=== PATIENT | female | born 1945 | race Caucasian/White ===

== ENCOUNTER 2017-05-29 20:26 | Emergency (ER) | payer MEDICARE ==
[~2017-05-29 20:26] MED LIST: BENI20TA26 PO; DICL75 PO; GLUC2.5T2 PO; HYDR-3533 PO; PIOG30 PO; SITA100 PO; VYTO10TA32 PO
[2017-05-29 20:29] VITALS: BP 116/58; PULSE 90; RESP 20; TEMP 100.1; O2SAT 96
[2017-05-29] MEDS ORDERED: PIOG30 PO (20:55)
[2017-05-29] MEDS ORDERED: SITA1TAB2 PO (20:55)
[2017-05-29] MEDS ORDERED: OLME1TAB PO (20:55)
[2017-05-29] MEDS ORDERED: ACIP20TA19 PO (20:55)
[2017-05-29] MEDS ORDERED: GLYB5TAB3 PO (20:55)
[2017-05-29] MEDS ORDERED: VYTO10TA27 PO (20:55)
--- NOTE | 2017-05-29 20:58 | PD ---
HPI Chief Complaint: Fever Time Seen by Provider: 20:39 Travel History International Travel<30 days: No Contact w/Intl Traveler<30days: No Traveled to known affect area: No History of Present Illness HPI pt on vacation from [place] for [place] today felt cold all over then measured tempurature and it was 100.8 took tylenol and felt better and then around 6 pm feeling came back , denies N/V/D and no cough no sore throat , no other complaints , 10 days ago in [place] had laproscopic Cholecystectomy , she went to an urgent care and they sent her to [place] [facility] . Now temp 101 no tylenol since this AM. no abdo pain no focal pain no bowel cahnges no urinary changes PFSH Past Medical History High Cholesterol: Yes Diabetes: Yes Patient Takes Glucophage: No Diminished Hearing: No GERD: Yes Hypertension: Yes Immunizations Current: Yes Tetanus Vaccination: < 5 Years Influenza Vaccination: Yes Menopausal: Yes Past Surgical History Section: Yes Cholecystectomy: Yes Social History Alcohol Use: No Tobacco Use: No Substance Use: No Allergies-Medications (Allergen,Severity, Reaction): Coded Allergies: No Known Allergies (Verified Adverse Reaction, Unknown, 05/29/17) Reported Meds & Prescriptions Reported Meds & Active Scripts Active Cipro (Ciprofloxacin HCl) 500 Mg Tab 500 Mg PO BID Zofran (Ondansetron HCl) 4 Mg Tab 4 Mg PO Q6HR PRN Reported Vytorin (Ezetimibe-Simvastatin) 10-10 Mg Tab 1 Tab PO HS Januvia (Sitagliptin Phosphate) 100 Mg Tab 100 Mg PO DAILY Glyburide 5 Mg Tab 5 Mg PO BID Take with meals at the same time each day Benicar (Olmesartan) 20 Mg Tab 20 Mg PO DAILY Aciphex (Rabeprazole Sodium) 20 Mg Tab 20 Mg PO DAILY Actos (Pioglitazone HCl) 30 Mg Tab 30 Mg PO DAILY Review of Systems Except as stated in HPI: all other systems reviewed are Neg General / Constitutional: Positive: Fever, Chills Respiratory: No: Cough, Shortness of Breath Gastrointestinal: No: Nausea, Vomiting, Abdominal Pain Genitourinary: No: Urgency, Frequency Musculoskeletal: No: Myalgias Neurologic: No: Weakness Physical Exam Narrative GENERAL: non toxic appearing SKIN: Warm and dry. HEAD: Atraumatic. Normocephalic. EYES: Pupils equal and round. No scleral icterus. No injection or drainage. ENT: No nasal bleeding or discharge. Mucous membranes pink and moist. NECK: Trachea midline. No JVD. CARDIOVASCULAR: Regular rate and rhythm. RESPIRATORY: No accessory muscle use. Clear to auscultation. Breath sounds equal bilaterally. GASTROINTESTINAL: Abdomen .. has 4 port holes no signs of infection around ports on skin and percussion does not elicit any rebound tenderness or pain. no skin signs of infection soft, non-tender, nondistended. Hepatic and splenic margins not palpable. POC U/S linear probe no abscess on Skin Sub Q and FAST negative for Free fluid in Morrisons pouch MUSCULOSKELETAL: Extremities without clubbing, cyanosis, or edema. No obvious deformities. NEUROLOGICAL: Awake and alert. No obvious cranial nerve deficits. Motor grossly within normal limits. Five out of 5 muscle strength in the arms and legs. Normal speech. PSYCHIATRIC: Appropriate mood and affect; insight and judgment normal. Data Data Last Documented VS Vital Signs Date Time Temp Pulse Resp B/P (MAP) Pulse Ox O2 Delivery O2 Flow Rate FiO2 05/29/17 22:40 05/29/17 22:39 99.7 82 18 98 Room Air Orders Orders Urinalysis - C+S If Indicated (05/29/17 20:51) Group A Rapid Strep Screen (05/29/17 20:58) Influenzae A/B Antigen (05/29/17 20:58) Urine Culture (05/29/17 20:55) Complete Blood Count With Diff (05/29/17 21:11) Comprehensive Metabolic Panel (05/29/17 21:11) Lipase (05/29/17 21:11) Strep Culture (Group A) (05/29/17 21:00) Ciprofloxacin (Cipro) (05/29/17 22:00) Labs Laboratory Tests Test 05/29/17 20:55 05/29/17 21:14 Urine Color YELLOW Urine Turbidity CLEAR Urine pH 5.5 Urine Specific [place] 1.025 Urine Protein 100 mg/dL Urine Glucose (UA) NEG mg/dL Urine Ketones TRACE mg/dL Urine Occult Blood TRACE Urine Nitrite NEG Urine Bilirubin NEG Urine Leukocyte Esterase SMALL Urine RBC 0-2 /hpf Urine WBC 50-99 /hpf Urine Squamous Epithelial Cells 0-5 /hpf Urine Bacteria OCC /hpf Microscopic Urinalysis Comment CULTURE INDICATED White Blood Count 9.9 TH/MM3 Red Blood Count 3.52 MIL/MM3 Hemoglobin 9.7 GM/DL Hematocrit 29.1 % Mean Corpuscular Volume 82.7 FL Mean Corpuscular Hemoglobin 27.5 PG Mean Corpuscular Hemoglobin Concent 33.2 % Red Cell Distribution Width 13.7 % Platelet Count 264 TH/MM3 Mean Platelet Volume 9.0 FL Neutrophils (%) (Auto) 81.8 % Lymphocytes (%) (Auto) 10.6 % Monocytes (%) (Auto) 6.8 % Eosinophils (%) (Auto) 0.4 % Basophils (%) (Auto) 0.4 % Neutrophils # (Auto) 8.2 TH/MM3 Lymphocytes # (Auto) 1.0 TH/MM3 Monocytes # (Auto) 0.7 TH/MM3 Eosinophils # (Auto) 0.0 TH/MM3 Basophils # (Auto) 0.0 TH/MM3 CBC Comment AUTO DIFF Differential Comment AUTO DIFF CONFIRMED Blood Urea Nitrogen 33 MG/DL Creatinine 1.60 MG/DL Random Glucose 151 MG/DL Total Protein 7.5 GM/DL Albumin 2.8 GM/DL Calcium Level 8.7 MG/DL Alkaline Phosphatase 69 U/L Aspartate Amino Transf (AST/SGOT) 14 U/L Alanine Aminotransferase (ALT/SGPT) 12 U/L Total Bilirubin 0.4 MG/DL Sodium Level 134 MEQ/L Potassium Level 4.1 MEQ/L Chloride Level 98 MEQ/L Carbon Dioxide Level 27.2 MEQ/L Anion Gap 9 MEQ/L Estimat Glomerular Filtration Rate 32 ML/MIN Lipase 112 U/L [facility] Medical Decision Making Medical Screen Exam Complete: Yes Emergency Medical Condition: Yes Differential Diagnosis viral illness vs UTI vs strep pharyngitis vs Influenza other Narrative Course Labs WBC 9 on serum no abdo pain on percussion and deep palpation . Negative murphys sign on my POC bedside Sonogram . Linear probe no abscess around surgical ports or above liver port, I feel that further eval of post op complication is not indicated at this time , pt UTI 50-99 WBC on UA will treat as UTI cipro 500mg PO bid time 7 days and close follow up in outpt flu swab negative Diagnosis Primary Impression: UTI (urinary tract infection) Qualified Codes: N30.00 - Acute cystitis without hematuria Patient Instructions: General Instructions, Urinary Tract Infection in Women ( ED) Scripts Ciprofloxacin (Cipro) 500 Mg Tab 500 MG PO BID for Infection, #14 TAB 0 Refills Prov: Dago Eng MD 05/29/17 Ondansetron (Zofran) 4 Mg Tab 4 MG PO Q6HR Y for NAUSEA OR VOMITING, #20 TAB 0 Refills Prov: Dago Eng MD 05/29/17 Disposition: 01 DISCHARGE HOME Condition: Good Dago Eng MD May 29, 2017 20:58
[2017-05-29 21:02] LABS: BILIRUBIN, URINE NEG (NEG); BLOOD, URINE TRACE (NEG); GLUCOSE,URINE NEG (NEG); KETONE, URINE TRACE mg/dL (NEG); NITRITE,URINE NEG (NEG); PH, URINE 5.5 (5.0-8.5); URINE LEUKOCYTE ESTERASE SMALL (NEG)
[2017-05-29 21:08] LABS: URINE COLOR YELLOW (YELLW/STRAW)
[2017-05-29 21:09] LABS: BACTERIA, URINE OCC /hpf; RBC, URINE 0-2 /hpf (0-3); SQUAMOUS EPITHELIAL CELL URINE 0-5 /hpf (0-5)
[2017-05-29 21:26] LABS: AUTOMATED NEUTROPHIL # 8.2 TH/MM3 (1.8-7.7); BASOPHIL % 0.4 % (0.0-2.0); EOSINOPHIL % 0.4 % (0.0-4.0); HEMATOCRIT 29.1 % (35.0-46.0); HEMOGLOBIN 9.7 GM/DL (11.6-15.3); LYMPH % 10.6 % (9.0-44.0); MEAN CELL VOLUME 82.7 FL (80.0-100.0); MEAN CORPUSCULAR HEMOGLOBIN 27.5 PG (27.0-34.0); MEAN CORPUSCULAR HGB CONC 33.2 % (32.0-36.0); MONO % 6.8 % (0.0-8.0); MONOCYTE # 0.7 TH/MM3 (0-0.9); NEUT % 81.8 % (16.0-70.0); PLATELET COUNT 264 TH/MM3 (150-450); RED BLOOD COUNT 3.52 MIL/MM3 (4.00-5.30); RED CELL DISTRIBUTION WIDTH 13.7 % (11.6-17.2); WHITE BLOOD COUNT 9.9 TH/MM3 (4.0-11.0)
[2017-05-29 21:37] LABS: CHLORIDE 98 MEQ/L (98-107); SODIUM (NA) 134 MEQ/L (136-145)
[2017-05-29 21:40] LABS: ALBUMIN 2.8 GM/DL (3.4-5.0); BICARBONATE 27.2 MEQ/L (21.0-32.0); BLOOD UREA NITROGEN 33 MG/DL (7-18); CALCIUM 8.7 MG/DL (8.5-10.1); GLUCOSE,RANDOM 151 MG/DL (74-106); LIPASE 112 U/L (73-393)
[2017-05-29 21:43] LABS: ALT (GPT) 12 U/L (10-53); AST (GOT) 14 U/L (15-37); GLOMERULAR FILTRATION RATE 32 ML/MIN (>89)
[2017-05-29 21:45] LABS: TOTAL BILIRUBIN ADULT 0.4 MG/DL (0.2-1.0); TOTAL PROTEIN 7.5 GM/DL (6.4-8.2)
[2017-05-29 21:46] LABS: ALKALINE PHOSPHATASE 69 U/L (45-117)
[2017-05-29] MEDS ORDERED: CIPROFLOXACIN 500 MG TAB PO ONE (22:00)
[2017-05-29] MEDS ORDERED: CIPR-9 PO (22:29)
[2017-05-29] MEDS ORDERED: ZOFR4TAB PO (22:29)
[2017-05-29 22:39] VITALS: BP 100/62; PULSE 82; RESP 18; TEMP 99.7; O2SAT 98
== END 2017-05-29 22:41 | disposition home or self-care (01) ==
LOC: PHED 20:26
DX: N30.00 Acute cystitis without hematuria (principal); R82.99 Other abnormal findings in urine; E78.00 Pure hypercholesterolemia, unspecified; E11.9 Type 2 diabetes mellitus without complications; I10 Essential (primary) hypertension; K21.9 Gastro-esophageal reflux disease without esophagitis; Z79.84 Long term (current) use of oral hypoglycemic drugs
CPT/HCPCS: 80053; 81001; 83690; 85025; 87081; 87086; 87804; 87880; 99284

== ENCOUNTER 2017-05-31 17:28 | Inpatient (IN) | payer MEDICARE ==
[~2017-05-31] VITALS: Ht 190.5 cm; Wt 81.3 kg
[~2017-05-31 17:28] MED LIST changes: +ACIP20TA19 PO; -BENI20TA26 PO; +CIPR-9 PO; -DICL75 PO; -GLUC2.5T2 PO; +GLYB5TAB3 PO; -HYDR-3533 PO; +OLME1TAB PO; -SITA100 PO; +SITA1TAB2 PO; +VYTO10TA27 PO; -VYTO10TA32 PO; +ZOFR4TAB PO
[2017-05-31 17:32] VITALS: BP 110/71; PULSE 79; RESP 16; TEMP 100.9; O2SAT 97
[2017-05-31 17:46] LABS: BILIRUBIN, URINE NEG (NEG); GLUCOSE,URINE NEG (NEG); KETONE, URINE NEG (NEG); NITRITE,URINE NEG (NEG); URINE LEUKOCYTE ESTERASE LARGE (NEG)
[2017-05-31 17:51] LABS: BLOOD, URINE TRACE (NEG)
[2017-05-31 17:52] LABS: URINE COLOR YELLOW (YELLW/STRAW)
[2017-05-31] MEDS ORDERED: GLYB5TAB3 PO (17:52)
[2017-05-31 17:53] LABS: BACTERIA, URINE FEW /hpf
--- NOTE | 2017-05-31 18:11 | PD ---
HPI Chief Complaint: Complaint Time Seen by Provider: 18:01 Travel History International Travel<30 days: No Contact w/Intl Traveler<30days: No Traveled to known affect area: No History of Present Illness HPI Patient evaluated 2 days ago with diagnosis of UTI with fever. Compliant with Cipro. Reports persistent fever. On vacation from [place] for [place]. Denies N/V/D, no cough, no sore throat , no other complaints , 12 days ago in [place] had laparoscopic Cholecystectomy. No abdominal pain, denies any urinary or bowel symptoms. PFSH Past Medical History High Cholesterol: Yes Diabetes: Yes Patient Takes Glucophage: Yes (05-31-17 0800) Diminished Hearing: No GERD: Yes Hypertension: Yes Immunizations Current: Yes Tetanus Vaccination: Unknown Influenza Vaccination: Yes ?: Not Menopausal: Yes Past Surgical History Section: Yes Cholecystectomy: Yes Other Surgery: Yes (polyps) Social History Alcohol Use: No Tobacco Use: No Substance Use: No Allergies-Medications (Allergen,Severity, Reaction): Coded Allergies: No Known Allergies (Verified Adverse Reaction, Unknown, 05/31/17) Reported Meds & Prescriptions Reported Meds & Active Scripts Active Cipro (Ciprofloxacin HCl) 500 Mg Tab 500 Mg PO BID Reported Glyburide 5 Mg Tab 5 Mg PO DAILY Take with meals at the same time each day Vytorin (Ezetimibe-Simvastatin) 10-10 Mg Tab 1 Tab PO HS Januvia (Sitagliptin Phosphate) 100 Mg Tab 50 Mg PO DAILY Benicar (Olmesartan) 20 Mg Tab 20 Mg PO DAILY Aciphex (Rabeprazole Sodium) 20 Mg Tab 20 Mg PO DAILY Actos (Pioglitazone HCl) 30 Mg Tab 15 Mg PO DAILY Review of Systems General / Constitutional: Positive: Fever Eyes: No: Visual changes HENT: No: Headaches Cardiovascular: No: Chest Pain or Discomfort Respiratory: No: Shortness of Breath Gastrointestinal: No: Abdominal Pain Genitourinary: No: Dysuria Musculoskeletal: No: Pain Skin: No Rash Neurologic: No: Weakness Psychiatric: No: Depression Endocrine: No: Polydipsia Hematologic/Lymphatic: No: Easy Bruising Physical Exam Narrative GENERAL: Well-nourished, well-developed patient. SKIN: Focused skin assessment warm/dry. HEAD: Normocephalic. EYES: No scleral icterus. No injection or drainage. NECK: Supple, trachea midline. No JVD or lymphadenopathy. CARDIOVASCULAR: Regular rate and rhythm without murmurs, gallops, or rubs. RESPIRATORY: Breath sounds equal bilaterally. No accessory muscle use. GASTROINTESTINAL: Abdomen soft, non-tender, nondistended. Surgical incisions without cellulitic change or drainage MUSCULOSKELETAL: No cyanosis, or edema. BACK: Nontender without obvious deformity. No CVA tenderness. Data Data Last Documented VS Vital Signs Date Time Temp Pulse Resp B/P (MAP) Pulse Ox O2 Delivery O2 Flow Rate FiO2 05/31/17 17:32 100.9 79 16 110/71 (84) 97 Orders Orders Urinalysis - C+S If Indicated (05/31/17 17:31) Urine Culture (05/31/17 17:40) Complete Blood Count With Diff (05/31/17 18:06) Comprehensive Metabolic Panel (05/31/17 18:06) Iv Access Insert/Monitor (05/31/17 18:06) Oximetry (05/31/17 18:06) Acetaminophen (Tylenol) (05/31/17 18:15) Ceftriaxone Inj (Rocephin Inj) (05/31/17 18:15) Sodium Chloride 0.9% Flush (Ns Flush) (05/31/17 18:15) Blood Culture (05/31/17 18:06) Ct Abd/Pel W Iv Contrast(Rout) (05/31/17 ) Labs Laboratory Tests Test 05/31/17 17:40 Urine Collection Type CLEAN CATCH Urine Color YELLOW Urine Turbidity SLIGHT Urine pH 5.0 Urine Specific [place] 1.008 Urine Protein 30 mg/dL Urine Glucose (UA) NEG mg/dL Urine Ketones NEG mg/dL Urine Occult Blood TRACE Urine Nitrite NEG Urine Bilirubin NEG Urine Leukocyte Esterase LARGE Urine RBC 4-9 /hpf Urine WBC 25-49 /hpf Urine Squamous Epithelial Cells 6-8 /hpf Urine Transitional Epithelial Cells 6-8 /hpf Urine Bacteria FEW /hpf Microscopic Urinalysis Comment CULTURE INDICATED Urine Collection Time 17:40 [facility] Medical Decision Making Medical Screen Exam Complete: Yes Emergency Medical Condition: Yes Differential Diagnosis UTI resistant to Cipro, cholecystectomy complication, fever unknown origin, viral illness Narrative Course Assessment and plan discussed with patient and at bedside. Gerald Dolan MD May 31, 2017 18:11
[2017-05-31] MEDS ORDERED: SODIUM CHLORIDE 0.9% FLUSH 10 ML FLUSH IVF PRN (18:15)
[2017-05-31] MEDS ORDERED: ACETAMINOPHEN 325 MG TAB PO ONE (18:15)
[2017-05-31] MEDS ORDERED: cefTRIAXone INJ 1,000 MG in SODIUM CHLORIDE 0.9% INJ 100 ML IV ONE (18:15)
[2017-05-31] MEDS ORDERED: DIATRIZOATE MEGLUM/DIATRIZOATE SOD 9 ML CUP ONE (18:26)
[2017-05-31 18:31] LABS: AUTOMATED NEUTROPHIL # 7.3 TH/MM3 (1.8-7.7); BASOPHIL # 0.5 TH/MM3 (0-0.2); BASOPHIL % 4.7 % (0.0-2.0); EOSINOPHIL % 0.5 % (0.0-4.0); HEMATOCRIT 28.2 % (35.0-46.0); HEMOGLOBIN 9.3 GM/DL (11.6-15.3); LYMPH % 12.6 % (9.0-44.0); LYMPHOCYTE # 1.2 TH/MM3 (1.0-4.8); MEAN CELL VOLUME 83.1 FL (80.0-100.0); MEAN CORPUSCULAR HEMOGLOBIN 27.4 PG (27.0-34.0); MEAN PLATELET VOLUME 8.8 FL (7.0-11.0); MONO % 8.7 % (0.0-8.0); MONOCYTE # 0.9 TH/MM3 (0-0.9); NEUT % 73.5 % (16.0-70.0); PLATELET COUNT 323 TH/MM3 (150-450); RED BLOOD COUNT 3.39 MIL/MM3 (4.00-5.30); RED CELL DISTRIBUTION WIDTH 13.9 % (11.6-17.2); WHITE BLOOD COUNT 9.9 TH/MM3 (4.0-11.0)
[2017-05-31 18:41] LABS: CHLORIDE 94 MEQ/L (98-107); SODIUM (NA) 132 MEQ/L (136-145)
[2017-05-31 18:44] LABS: CALCIUM 8.6 MG/DL (8.5-10.1)
[2017-05-31 18:45] LABS: ALBUMIN 2.7 GM/DL (3.4-5.0); BICARBONATE 25.9 MEQ/L (21.0-32.0); BLOOD UREA NITROGEN 36 MG/DL (7-18); GLUCOSE,RANDOM 106 MG/DL (74-106)
[2017-05-31 18:48] LABS: ALT (GPT) 16 U/L (10-53)
[2017-05-31 18:54] VITALS: O2SAT 97
[2017-05-31 18:56] LABS: ALKALINE PHOSPHATASE 123 U/L (45-117); AST (GOT) 38 U/L (15-37); GLOMERULAR FILTRATION RATE 21 ML/MIN (>89); TOTAL BILIRUBIN ADULT 0.4 MG/DL (0.2-1.0); TOTAL PROTEIN 7.9 GM/DL (6.4-8.2)
[2017-05-31] MEDS ORDERED: SODIUM CHLOR 0.9% 1000 ML INJ 1,000 ML IV ONE ×2 (19:30→21:15)
[2017-05-31 20:02] VITALS: BP 91/54; PULSE 68; RESP 18; O2SAT 97
--- NOTE | 2017-05-31 20:56 | RADRPT ---
EXAM DATE/TIME: 05/31/2017 20:16 [facility] COMPARISON: No previous studies available for comparison. INDICATIONS : Fever. Possible UTI. Recent cholecysectomy 05/19/2017, suspected abscess. ORAL CONTRAST: Partial prescribed oral contrast ingested. RADIATION DOSE: 23.14 CTDIvol (mGy) MEDICAL HISTORY : Hypercholesterolemia. Hypertension. Diabetes mellitus type 2. SURGICAL HISTORY : Cholecystectomy. ENCOUNTER: Initial ACUITY: 2 days PAIN SCALE: 3/10 LOCATION: Right upper quadrant TECHNIQUE: Volumetric scanning of the abdomen and pelvis was performed. Using automated exposure control and ad justment of the mA and/or kV according to patient size, radiation dose was kept as low as reasonably achievable to obtain optimal diagnostic quality images. DICOM format image data is available electro nically for review and comparison. FINDINGS: LOWER LUNGS: Mild atelectasis at the lung bases. LIVER: Cholecystectomy clips are seen in the gallbladder fossa. 7.6 x 4.9 cm gas and fluid collection in the gallbladder fossa suspicious for abscess. Liver is unremarkable. SPLEEN: Normal size without lesion. PANCREAS: Within normal limits. KIDNEYS: Normal in size and shape. There is no mass, stone, or hydronephrosis. ADRENAL GLANDS: Within normal limits. VASCULAR: There is no aortic aneurysm. BOWEL/MESENTERY: No evidence of bowel dilatation. No free air or free fluid. Appendix within normal limits. ABDOMINAL WALL: Within normal limits. RETROPERITONEUM: There is no lymphadenopathy. BLADDER: No wall thickening or mass. REPRODUCTIVE: Within normal limits. INGUINAL: There is no lymphadenopathy or hernia. MUSCULOSKELETAL: Degenerative findings lumbar spine. CONCLUSION: Status post cholecystectomy. 8 cm mixed gas and fluid collection in the gallbladder fossa suspicious for abscess adjacent inflammatory changes also noted. Marco A Fountain MD on May 31, 2017 at 20:44 Board Certified Radiologist. This report was verified electronically.
[2017-05-31] MEDS ORDERED: PIPERACIL-TAZO 2.25 GM PREMIX 50 ML IV ONE (21:15)
[2017-05-31] MEDS: SODIUM CHLOR 0.9% 1000 ML INJ 1,000 ML IV SCH (21:42)
[2017-05-31] MEDS ORDERED: SENNOSIDES 8.6 MG TAB PO PRN (21:45)
[2017-05-31] MEDS ORDERED: ACETAMINOPHEN 325 MG TAB PO PRN (21:45)
[2017-05-31] MEDS ORDERED: ONDANSETRON HCL 4 MG/2 ML VIAL IVP PRN (21:45)
[2017-05-31] MEDS ORDERED: LACTULOSE SYRUP 20 GM/30 ML CUP PO PRN (21:45)
[2017-05-31] MEDS ORDERED: BISACODYL 10 MG SUPP RECTAL PRN (21:45)
[2017-05-31] MEDS ORDERED: NALOXONE HCL 0.4 MG/ML AMP IV PUSH PRN (21:45)
[2017-05-31] MEDS ORDERED: SODIUM CHLORIDE 0.9% FLUSH 10 ML FLUSH IV FLUSH PRN (21:45)
[2017-05-31] MEDS ORDERED: MAGNESIUM HYDROXIDE SUSP 30 ML CUP PO PRN (21:45)
[2017-05-31] MEDS ORDERED: LIDOCAINE HCL 1% 20 ML VIAL SQ ONE (21:47)
[2017-05-31 21:53] LABS: INTERNATIONAL NORMALIZED RATIO 1.1 RATIO; PROTHROMBIN TIME - PATIENT 11.6 SEC (9.8-11.6)
[2017-05-31 22:05] VITALS: BP 113/52; PULSE 68; RESP 18; O2SAT 97
[2017-05-31 22:35] VITALS: BP 125/62; PULSE 75; RESP 16; TEMP 98.3; O2SAT 100
[2017-06-01] VITALS (9 sets, daily range): BP systolic 94–141; BP diastolic 51–87; PULSE 72–78; RESP 16–20; TEMP 97.9–99.2; O2SAT 95–100
--- NOTE | 2017-06-01 03:17 | PD ---
Data Data Last Documented VS Vital Signs Date Time Temp Pulse Resp B/P (MAP) Pulse Ox O2 Delivery O2 Flow Rate FiO2 05/31/17 20:02 68 18 91/54 (66) 97 Room Air 05/31/17 17:32 100.9 Orders Orders Urinalysis - C+S If Indicated (05/31/17 17:31) Urine Culture (05/31/17 17:40) Complete Blood Count With Diff (05/31/17 18:06) Comprehensive Metabolic Panel (05/31/17 18:06) Iv Access Insert/Monitor (05/31/17 18:06) Oximetry (05/31/17 18:06) Acetaminophen (Tylenol) (05/31/17 18:15) Ceftriaxone Inj (Rocephin Inj) (05/31/17 18:15) Sodium Chloride 0.9% Flush (Ns Flush) (05/31/17 18:15) Blood Culture (05/31/17 18:06) Oral Contrast - Adult (05/31/17 18:15) Diatrizoate Liq ( Gastroview Liq) (05/31/17 18:26) Ct Abd/Pel W/O Iv Contrast (05/31/17 ) Sodium Chlor 0.9% 1000 Ml Inj (Ns 1000 M (05/31/17 19:30) Sodium Chlor 0.9% 1000 Ml Inj (Ns 1000 M (05/31/17 21:15) Piperacil-Tazo 2.25 Gm Premix (Zosyn 2.2 (05/31/17 21:15) Prothrombin Time / Inr (Pt) (05/31/17 21:24) Act Partial Throm Time (Ptt) (05/31/17 21:24) Admit Order (Ed Use Only) (05/31/17 21:44) Place In Observation (05/31/17 ) Vital Signs (Adult) Q4H (05/31/17 21:42) Activity Oob With Assistance (05/31/17 21:42) Bedside Glucose ZENON.CSUGAR (05/31/17 21:42) Diet Npo (06/01/17 Breakfast) Sodium Chlor 0.9% 1000 Ml Inj (Ns 1000 M (05/31/17 21:42) Sodium Chloride 0.9% Flush (Ns Flush) (05/31/17 21:45) Sodium Chloride 0.9% Flush (Ns Flush) (06/01/17 09:00) Acetaminophen (Tylenol) (05/31/17 21:45) Ondansetron Inj (Zofran Inj) (05/31/17 21:45) Comprehensive Metabolic Panel (06/01/17 06:00) Complete Blood Count With Diff (06/01/17 06:00) Scd Bilateral/Knee High ZENON.BID (05/31/17 21:42) Naloxone Inj (Narcan Inj) (05/31/17 21:45) Docusate Sodium-Senna (Madeline-Colace) (06/01/17 09:00) Magnesium Hydroxide Liq (Milk Of Magnesi (05/31/17 21:45) Sennosides (Senokot) (05/31/17 21:45) Bisacodyl Supp (Dulcolax Supp) (05/31/17 21:45) Lactulose Liq (Lactulose Liq) (05/31/17 21:45) Piperacil-Tazo 3.375 Gm Premix (Zosyn 3. (06/01/17 04:00) Invasive Rad Dept Consult (05/31/17 ) Labs Laboratory Tests Test 05/31/17 17:40 05/31/17 18:04 05/31/17 21:35 Urine Collection Type CLEAN CATCH Urine Color YELLOW Urine Turbidity SLIGHT Urine pH 5.0 Urine Specific [place] 1.008 Urine Protein 30 mg/dL Urine Glucose (UA) NEG mg/dL Urine Ketones NEG mg/dL Urine Occult Blood TRACE Urine Nitrite NEG Urine Bilirubin NEG Urine Leukocyte Esterase LARGE Urine RBC 4-9 /hpf Urine WBC 25-49 /hpf Urine Squamous Epithelial Cells 6-8 /hpf Urine Transitional Epithelial Cells 6-8 /hpf Urine Bacteria FEW /hpf Microscopic Urinalysis Comment CULTURE INDICATED Urine Collection Time 17:40 White Blood Count 9.9 TH/MM3 Red Blood Count 3.39 MIL/MM3 Hemoglobin 9.3 GM/DL Hematocrit 28.2 % Mean Corpuscular Volume 83.1 FL Mean Corpuscular Hemoglobin 27.4 PG Mean Corpuscular Hemoglobin Concent 33.0 % Red Cell Distribution Width 13.9 % Platelet Count 323 TH/MM3 Mean Platelet Volume 8.8 FL Neutrophils (%) (Auto) 73.5 % Lymphocytes (%) (Auto) 12.6 % Monocytes (%) (Auto) 8.7 % Eosinophils (%) (Auto) 0.5 % Basophils (%) (Auto) 4.7 % Neutrophils # (Auto) 7.3 TH/MM3 Lymphocytes # (Auto) 1.2 TH/MM3 Monocytes # (Auto) 0.9 TH/MM3 Eosinophils # (Auto) 0.0 TH/MM3 Basophils # (Auto) 0.5 TH/MM3 CBC Comment DIFF FINAL Differential Comment Blood Urea Nitrogen 36 MG/DL Creatinine 2.30 MG/DL Random Glucose 106 MG/DL Total Protein 7.9 GM/DL Albumin 2.7 GM/DL Calcium Level 8.6 MG/DL Alkaline Phosphatase 123 U/L Aspartate Amino Transf (AST/SGOT) 38 U/L Alanine Aminotransferase (ALT/SGPT) 16 U/L Total Bilirubin 0.4 MG/DL Sodium Level 132 MEQ/L Potassium Level 4.1 MEQ/L Chloride Level 94 MEQ/L Carbon Dioxide Level 25.9 MEQ/L Anion Gap 12 MEQ/L Estimat Glomerular Filtration Rate 21 ML/MIN Prothrombin Time 11.6 SEC Prothromb Time International Ratio 1.1 RATIO Activated Partial Thromboplast Time 31.1 SEC [facility] Supervised Visit with DALLIN: No Interpretation(s) Temperature is 100.9, no tachycardia No leukocytosis Hyponatremia Renal insufficiency worse than prior Urinalysis demonstrates some squamous epithelial cells a possible UTI. Urine culture from 2 days ago is negative. Last 24 hours Impressions Abdomen/Pelvis CT 05/31/17 0000 Signed Impressions: Service Date/Time: Wednesday, May 31, 2017 20:16 - CONCLUSION: Status post cholecystectomy. 8 cm mixed gas and fluid collection in the gallbladder fossa suspicious for abscess adjacent inflammatory changes also noted. Marco A Fountain MD Differential Diagnosis Abscess, urinary tract infection, pyelonephritis, sepsis Narrative Course This is a 72-year-old female who had a cholecystectomy 2 weeks ago in [place] who presents to the emergency department with intractable fevers and chills. She was seen in the emergency department 2 days ago and diagnosed with a urinary tract infection. She was started on Cipro oxygen. Her urine culture was negative from that time. She continues to feel weak and have fevers and chills. Labs demonstrate worsening dehydration and renal insufficiency. She does have a possible urinary tract infection however her urinalysis is contaminated. CT abdomen and pelvis demonstrates an 8 cm fluid collection in the gallbladder fossa concerning for abscess. I suspect this is the etiology of her symptoms. I spoke to radiology and we discussed likely drain placement tomorrow morning. She was given a dose of Zosyn in the emergency department. Diagnosis Primary Impression: Abscess after procedure Admitting Information Admitting Physician Requests: Admit Emma Hendrix MD Jun 01, 2017 03:17
[2017-06-01] MEDS ORDERED: PIPERACIL-TAZO 3.375 GM PREMIX 50 ML IV SCH (04:00)
[2017-06-01 07:32] LABS: CHLORIDE 101 MEQ/L (98-107); SODIUM (NA) 137 MEQ/L (136-145)
[2017-06-01 07:33] LABS: AUTOMATED NEUTROPHIL # 6.7 TH/MM3 (1.8-7.7); BASOPHIL # 0.1 TH/MM3 (0-0.2); BASOPHIL % 1.6 % (0.0-2.0); EOSINOPHIL # 0.1 TH/MM3 (0-0.4); EOSINOPHIL % 0.7 % (0.0-4.0); HEMATOCRIT 26.9 % (35.0-46.0); HEMOGLOBIN 8.9 GM/DL (11.6-15.3); LYMPH % 8.4 % (9.0-44.0); LYMPHOCYTE # 0.7 TH/MM3 (1.0-4.8); MEAN CELL VOLUME 84.6 FL (80.0-100.0); MEAN CORPUSCULAR HEMOGLOBIN 27.9 PG (27.0-34.0); MEAN PLATELET VOLUME 8.5 FL (7.0-11.0); MONO % 8.5 % (0.0-8.0); MONOCYTE # 0.7 TH/MM3 (0-0.9); NEUT % 80.8 % (16.0-70.0); PLATELET COUNT 296 TH/MM3 (150-450); RED BLOOD COUNT 3.18 MIL/MM3 (4.00-5.30); WHITE BLOOD COUNT 8.3 TH/MM3 (4.0-11.0)
[2017-06-01 07:36] LABS: ALBUMIN 2.2 GM/DL (3.4-5.0); BICARBONATE 24.1 MEQ/L (21.0-32.0); BLOOD UREA NITROGEN 37 MG/DL (7-18); GLUCOSE,RANDOM 95 MG/DL (74-106)
[2017-06-01 07:39] LABS: ALT (GPT) 17 U/L (10-53); AST (GOT) 52 U/L (15-37); GLOMERULAR FILTRATION RATE 18 ML/MIN (>89)
[2017-06-01 07:40] LABS: TOTAL BILIRUBIN ADULT 0.4 MG/DL (0.2-1.0)
[2017-06-01 07:41] LABS: TOTAL PROTEIN 6.4 GM/DL (6.4-8.2)
[2017-06-01 07:42] LABS: ALKALINE PHOSPHATASE 138 U/L (45-117)
[2017-06-01] MEDS: DOCUSATE SODIUM 50 MG/SENNA 8.6 MG TAB PO SCH ×2 (08:13→20:37)
[2017-06-01] MEDS: SODIUM CHLOR 0.9% 1000 ML INJ 1,000 ML IV SCH ×3 (08:13→23:09)
[2017-06-01] MEDS: SODIUM CHLORIDE 0.9% FLUSH 10 ML FLUSH IV FLUSH SCH ×2 (08:13→20:37)
--- NOTE | 2017-06-01 09:08 | HHI.HP ---
[facility] Non-Staff Admission Diagnosis abscess Diagnoses: Chief Complaint: Fever. Travel History International Travel<30 Days: No Contact w/Intl Traveler <30 Da: No Traveled to Known Affected Are: No History of Present Illness Ms. Cross is a pleasant 72-year-old occasional female with recent history of cholecystectomy on 05/19/2017 in [facility] who presents to the emergency department due to persistent fever. She was evaluated in the emergency department 2 days prior to this admission due fever and she was discharged on ciprofloxacin. However due to persistent fever she returned to the emergency department. She had right upper quadrant pain as well but currently she denies any pain. She denies any dysuria, hematuria. No chest pain, shortness of breath. Denies any changes in bowel or bladder habits. On arrival temperature 100.9F pulse 79 respiration 16 blood pressure 110/71 pulse oximetry 97% on room air. Lab work indicates no leukocytosis, elevation in creatinine 2.60. Lactic acid 0.9. CT abdomen pelvis indicated 8 cm mixed gas and fluid collection in the gallbladder fossa suspicious for abscess. Follow-up MRCP was done which indicated hematoma/debris in the gallbladder fossa. Review of Systems Except as stated in HPI: all other systems reviewed are Neg Past Family Social History Past Medical History Diabetes mellitus, hypertension, GERD Past Surgical History Cholecystectomy, Reported Medications Cipro (Ciprofloxacin HCl) 500 Mg Tab 500 Mg PO BID Reported Glyburide 5 Mg Tab 5 Mg PO DAILY Take with meals at the same time each day Vytorin (Ezetimibe-Simvastatin) 10-10 Mg Tab 1 Tab PO HS Januvia (Sitagliptin Phosphate) 100 Mg Tab 50 Mg PO DAILY Benicar (Olmesartan) 20 Mg Tab 20 Mg PO DAILY Aciphex (Rabeprazole Sodium) 20 Mg Tab 20 Mg PO DAILY Actos (Pioglitazone HCl) 30 Mg Tab 15 Mg PO DAILY Allergies: Coded Allergies: No Known Allergies (Verified Adverse Reaction, Unknown, 05/31/17) Family History No family history of Alzheimer's dementia, Parkinson's Social History Denies using tobacco, alcohol, illicit drugs Physical Exam Vital Signs Vital Signs Date Time Temp Pulse Resp B/P (MAP) Pulse Ox O2 Delivery O2 Flow Rate FiO2 06/01/17 08:00 99.2 78 18 105/51 (69) 96 06/01/17 04:00 98.9 75 16 94/ 95 06/01/17 00:00 98.3 75 16 121/60 (80) 100 05/31/17 22:40 68 18 97 05/31/17 22:35 98.3 75 16 125/62 (83) 100 05/31/17 22:05 68 18 113/52 (72) 97 Room Air 05/31/17 20:02 68 18 91/54 (66) 97 Room Air 05/31/17 18:54 97 Room Air 05/31/17 17:32 100.9 79 16 110/71 (84) 97 Physical Exam GENERAL: This is a well-nourished, well-developed patient, in no apparent distress. SKIN: No rashes, ecchymoses or lesions. Warm and dry. HEAD: Atraumatic. Normocephalic. No temporal or scalp tenderness. EYES: Pupils equal round and reactive. No injection or drainage. ENT: Nose without bleeding, purulent drainage or septal hematoma. Airway patent. NECK: Trachea midline. No lymphadenopathy. Supple, nontender, no meningeal signs. CARDIOVASCULAR: Regular rate and rhythm without murmurs, gallops, or rubs. No JVD. RESPIRATORY: Clear to auscultation. Breath sounds equal bilaterally. No wheezes , rales, or rhonchi. GASTROINTESTINAL: Abdomen soft, non-tender, nondistended. No guarding. MUSCULOSKELETAL: Extremities without clubbing, cyanosis, or edema. NEUROLOGICAL: Awake and alert. Cranial nerves II through XII intact. No focal neurological deficits. Normal speech. Laboratory Laboratory Tests Test 05/31/17 17:40 05/31/17 18:04 05/31/17 21:35 06/01/17 06:40 Urine Collection Type CLEAN CATCH Urine Color YELLOW Urine Turbidity SLIGHT Urine pH 5.0 Urine Specific [place] 1.008 Urine Protein 30 Urine Glucose (UA) NEG Urine Ketones NEG Urine Occult Blood TRACE Urine Nitrite NEG Urine Bilirubin NEG Urine Leukocyte Esterase LARGE Urine RBC 4-9 Urine WBC 25-49 Urine Squamous Epithelial Cells 6-8 Urine Transitional Epithelial Cells 6-8 Urine Bacteria FEW Microscopic Urinalysis Comment CULTURE INDICATED Urine Collection Time 17:40 White Blood Count 9.9 8.3 Red Blood Count 3.39 3.18 Hemoglobin 9.3 8.9 Hematocrit 28.2 26.9 Mean Corpuscular Volume 83.1 84.6 Mean Corpuscular Hemoglobin 27.4 27.9 Mean Corpuscular Hemoglobin Concent 33.0 33.0 Red Cell Distribution Width 13.9 14.0 Platelet Count 323 296 Mean Platelet Volume 8.8 8.5 Neutrophils (%) (Auto) 73.5 80.8 Lymphocytes (%) (Auto) 12.6 8.4 Monocytes (%) (Auto) 8.7 8.5 Eosinophils (%) (Auto) 0.5 0.7 Basophils (%) (Auto) 4.7 1.6 Neutrophils # (Auto) 7.3 6.7 Lymphocytes # (Auto) 1.2 0.7 Monocytes # (Auto) 0.9 0.7 Eosinophils # (Auto) 0.0 0.1 Basophils # (Auto) 0.5 0.1 CBC Comment DIFF FINAL DIFF FINAL Differential Comment Blood Urea Nitrogen 36 37 Creatinine 2.30 2.60 Random Glucose 106 95 Total Protein 7.9 6.4 Albumin 2.7 2.2 Calcium Level 8.6 8.0 Alkaline Phosphatase 123 138 Aspartate Amino Transf (AST/SGOT) 38 52 Alanine Aminotransferase (ALT/SGPT) 16 17 Total Bilirubin 0.4 0.4 Sodium Level 132 137 Potassium Level 4.1 3.7 Chloride Level 94 101 Carbon Dioxide Level 25.9 24.1 Anion Gap 12 12 Estimat Glomerular Filtration Rate 21 18 Prothrombin Time 11.6 Prothromb Time International Ratio 1.1 Activated Partial Thromboplast Time 31.1 Date/Time Source Procedure Growth Status 05/31/17 18:05 Blood Peripheral Aerobic Blood Culture Pending Received 05/31/17 18:05 Blood Peripheral Anaerobic Blood Culture Pending Received 05/31/17 17:40 Urine Clean Catch Urine Culture Pending Received Result Diagram: 06/01/17 0640 06/01/17 0640 Imaging Last Impressions Cholangiopancreatography MRI 06/01/17 0000 Signed Impressions: Service Date/Time: Thursday, June 01, 2017 09:37 - CONCLUSION: Hematoma/debris gallbladder fossa as described on CT scan. Abscess cannot be entirely excluded. Monty Saunders MD FACR Abdomen/Pelvis CT 05/31/17 0000 Signed Impressions: Service Date/Time: Wednesday, May 31, 2017 20:16 - CONCLUSION: Status post cholecystectomy. 8 cm mixed gas and fluid collection in the gallbladder fossa suspicious for abscess adjacent inflammatory changes also noted. MD Tiesha Pollardi VTE Risk Assessment Caprini VTE Risk Assessment: No/Low Risk (score <= 1) Caprini Risk Assessment Model Point Value = 1 Point Value = 2 Point Value = 3 Point Value = 5 Age 41-60 Minor surgery BMI > 25 kg/m2 Swollen legs Varicose veins or History of unexplained or recurrent spontaneous Oral contraceptives or hormone replacement Sepsis (< 1 month) Serious lung disease, including pneumonia (< 1 month) Abnormal pulmonary function Acute myocardial infarction Congestive heart failure (< 1 month) History of inflammatory bowel disease Medical patient at bed rest Age 61-74 Arthroscopic surgery Major open surgery (> 45 min) Laparoscopic surgery (> 45 min) Malignancy Confined to bed (> 72 hours) Immobilizing plaster cast Central venous access Age >= 75 History of VTE Family history of VTE Factor V Leiden Prothrombin [id number] Lupus anticoagulant Anticardiolipin antibodies Elevated serum homocysteine Heparin-induced thrombocytopenia Other congenital or acquired thrombophilia Stroke (< 1 month) Elective arthroplasty Hip, pelvis, or leg fracture Acute spinal cord injury (< 1 month) Prophylaxis Regimen Total Risk Factor Score Risk Level Prophylaxis Regimen 0-1 Low Early ambulation 2 Moderate Order ONE of the following: *Sequential Compression Device (SCD) *Heparin 5000 units SQ BID 3-4 Higher Order ONE of the following medications: *Heparin 5000 units SQ TID *Enoxaparin/Lovenox 40 mg SQ daily (WT < 150 kg, CrCl > 30 mL/min) *Enoxaparin/Lovenox 30 mg SQ daily (WT < 150 kg, CrCl > 10-29 mL/min) *Enoxaparin/Lovenox 30 mg SQ BID (WT < 150 kg, CrCl > 30 mL/min) AND/OR *Sequential Compression Device (SCD) 5 or more Highest Order ONE of the following medications: *Heparin 5000 units SQ TID (Preferred with Epidurals) *Enoxaparin/Lovenox 40 mg SQ daily (WT < 150 kg, CrCl > 30 mL/min) *Enoxaparin/Lovenox 30 mg SQ daily (WT < 150 kg, CrCl > 10-29 mL/min) *Enoxaparin/Lovenox 30 mg SQ BID (WT < 150 kg, CrCl > 30 mL/min) AND *Sequential Compression Device (SCD) Assessment and Plan Problem List: (1) Gallbladder abscess ICD Code: K81.0 - Acute cholecystitis (2) Acute kidney injury ICD Code: N17.9 - Acute kidney failure, unspecified (3) GERD (gastroesophageal reflux disease) ICD Code: K21.9 - Gastro-esophageal reflux disease without esophagitis (4) Diabetes mellitus ICD Code: E11.9 - Type 2 diabetes mellitus without complications (5) CKD (chronic kidney disease) stage 3, GFR 30-59 ml/min ICD Code: N18.3 - Chronic kidney disease, stage 3 (moderate) Assessment and Plan Ms. Cross is a pleasant 72-year-old female with a history of diabetes melitis and recent history of cholecystectomy on 05/19/2017 in [place] who presents to the emergency department due to persistent fever. Radiological workup indicated possible gallbladder fossa abscess. - Probable gallbladder fossa abscess - Discussed with general surgeon on-call who recommended abscess drainage by interventional radiology. - Reviewed CT abdomen pelvis and MRCP - both imaging studies indicated gallbladder fossa fluid collection possibly abscess - We'll continue Zosyn 3.375 g every 6 hours - If patient remains afebrile for 24 hours will consider switching to oral antibiotics and discharged home. - Acute kidney injury - Probable chronic kidney disease stage III - Creatinine jumped from 1.60 on 05/29/2017 to 2.3 and 2.6 during this admission. - We'll keep patient on normal saline 100 cc per hour. - Avoid nephrotoxins - Will repeat BMP in the AM. - Diabetes mellitus - Hold oral hypoglycemics. - Patient's blood glucose has been well-controlled 95-106. We'll continue sliding scale insulin. - GERD - continue PPI. Full code. [employer]. Teo Mcintyre DO Jun 01, 2017 9:08 am
--- NOTE | 2017-06-01 10:29 | RADRPT ---
EXAM DATE/TIME: 06/01/2017 09:37 [place] COMPARISON: CT ABDOMEN & PELVIS W/O CONTRAST, May 31, 2017, 20:16. INDICATIONS : Abnormal CT scan. 12 days post cholecystectomy. MEDICAL HISTORY : Hypertension. Diabetes mellitus type 2. Hypercholesterolemia. SURGICAL HISTORY : Cholecystectomy. section. ENCOUNTER: Initial ACUITY: 1 day PAIN SCORE: 5/10 LOCATION: Abdomen TECHNIQUE: Multiplanar, multisequence magnetic resonance imaging of the abdomen was performed. High-resolution 3D dataset was utilized to reconstruct maximum-intensity projection (MIP) images. FINDINGS: There is hematoma/debris in the gallbladder fossa. There is no intrahepatic duct dilatation. Spleen is unremarkable. Pancreas is unremarkable. CONCLUSION: Hematoma/debris gallbladder fossa as described on CT scan. Abscess cannot be entirel y excluded. Monty Saunders MD FACR on June 01, 2017 at 10:23 Board Certified Radiologist. This report was verified electronically.
[2017-06-01] MEDS ORDERED: DEXTROSE 50% IN WATER 50 ML VIAL(D50) IV PUSH PRN (11:45)
[2017-06-01] MEDS ORDERED: GLUCAGON 1 MG/ML VIAL OTHER PRN (11:45)
[2017-06-01] MEDS ORDERED: MIDAZOLAM HCL 2 MG/2 ML VIAL ONE (12:00)
[2017-06-01] MEDS ORDERED: LIDOCAINE HCL 1% 20 ML VIAL SQ ONE (12:25)
--- NOTE | 2017-06-01 12:40 | PD.RAD ---
Post CT Procedure Prog Note Pre Procedure Diagnosis: (1) Gallbladder abscess Post Procedure Diagnosis: (1) Gallbladder abscess Procedure Date: Jun 01, 2017 Supervising Radiologist: Foster Hill Anesthesia: Conscious Sedation Plan of Activity Patient to Unit: Nursing Unit Patient Condition: Good See PACS Report for procedural detail/treatment Foster Hill MD Jun 01, 2017 12:39
[2017-06-01] MEDS: INSULIN ASPART SUPPLEMENTAL SCALE SQ SCH ×3 (13:36→20:43)
[2017-06-01] MEDS: PIPERACIL-TAZO 2.25 GM PREMIX 50 ML IV SCH ×2 (13:43→20:37)
[2017-06-01] MEDS ORDERED: MORPHINE SULFATE 2 MG/ML INJ IV ONE (16:00)
[2017-06-01] MEDS ORDERED: ACETAMINOPHEN 500 MG CPLT PO PRN (17:30)
[2017-06-01] MEDS ORDERED: MORPHINE SULFATE 2 MG/ML INJ IV PUSH PRN (17:30)
[2017-06-01] MEDS: ACETAMINOPHEN/HYDROcodone 325 MG/5 MG TAB PO PRN (20:37)
[2017-06-02] VITALS: BP 122/59; PULSE 72; RESP 20; TEMP 98.6; O2SAT 93
[2017-06-02] MEDS: PIPERACIL-TAZO 2.25 GM PREMIX 50 ML IV SCH ×3 (04:03→20:53)
[2017-06-02 08:00] VITALS: BP 133/61; PULSE 68; RESP 18; TEMP 98.4; O2SAT 96
--- NOTE | 2017-06-02 08:09 | HHI.PR ---
Subjective Remarks Follow up for gallbladder fossa abscess s/p drain placement by IR. Patient is currently doing well. No fever, chills. Pain is well controlled. When she moves , she gets pain on the right side. Objective Vitals Vital Signs Date Time Temp Pulse Resp B/P (MAP) Pulse Ox O2 Delivery O2 Flow Rate FiO2 06/02/17 00:00 98.6 72 20 122/59 (80) 93 06/01/17 20:00 97.9 78 18 121/56 (77) 96 06/01/17 16:00 98.3 73 18 116/58 (77) 96 06/01/17 14:15 98.6 78 17 108/55 (72) 95 06/01/17 13:45 98.0 72 16 109/64 (79) 99 06/01/17 13:15 74 20 116/87 (97) 98 06/01/17 13:00 98.8 73 20 141/59 (86) 95 I/O 06/01/17 06/01/17 06/01/17 06/02/17 06/02/17 06/02/17 07:00 15:00 23:00 07:00 15:00 23:00 Intake Total 50 ml 400 ml 670 ml 670 ml Output Total 20 ml Balance 50 ml 380 ml 670 ml 670 ml Intake Oral 350 ml 240 ml IV Total 50 ml 50 ml 670 ml 430 ml Output Drainage Total 20 ml # Voids 1 2 2 # Bowel Movements 0 Result Diagram: 06/01/17 0640 06/01/17 0640 Imaging Last Impressions Cholangiopancreatography MRI 06/01/17 0000 Signed Impressions: Service Date/Time: Thursday, June 01, 2017 09:37 - CONCLUSION: Hematoma/debris gallbladder fossa as described on CT scan. Abscess cannot be entirely excluded. Monty Saunders MD FACR Abdomen/Pelvis CT 05/31/17 0000 Signed Impressions: Service Date/Time: Wednesday, May 31, 2017 20:16 - CONCLUSION: Status post cholecystectomy. 8 cm mixed gas and fluid collection in the gallbladder fossa suspicious for abscess adjacent inflammatory changes also noted. Marco A Fountain MD Objective Remarks GENERAL: Alert, oriented x 3, NAD. SKIN: Warm and dry. HEAD: Normocephalic. EYES: No scleral icterus. No injection or drainage. NECK: Supple, trachea midline. No JVD or lymphadenopathy. CARDIOVASCULAR: Regular rate and rhythm without murmurs, gallops, or rubs. RESPIRATORY: Breath sounds equal bilaterally. No accessory muscle use. GASTROINTESTINAL: Abdomen soft, non-tender, nondistended. GB fossa abscess drain in place. MUSCULOSKELETAL: No cyanosis, or edema. BACK: Nontender without obvious deformity. No CVA tenderness. A/P Problem List: (1) Gallbladder abscess ICD Code: K81.0 - Acute cholecystitis (2) Acute kidney injury ICD Code: N17.9 - Acute kidney failure, unspecified (3) GERD (gastroesophageal reflux disease) ICD Code: K21.9 - Gastro-esophageal reflux disease without esophagitis (4) Diabetes mellitus ICD Code: E11.9 - Type 2 diabetes mellitus without complications (5) CKD (chronic kidney disease) stage 3, GFR 30-59 ml/min ICD Code: N18.3 - Chronic kidney disease, stage 3 (moderate) Assessment and Plan Ms. Cross is a pleasant 72-year-old female with a history of diabetes melitis and recent history of cholecystectomy on 05/19/2017 in [place] who presents to the emergency department due to persistent fever. Radiological workup indicated possible gallbladder fossa abscess. - Probable gallbladder fossa abscess - Discussed with general surgeon on-call who recommended abscess drainage by interventional radiology. - Reviewed CT abdomen pelvis and MRCP - both imaging studies indicated gallbladder fossa fluid collection possibly abscess - We'll continue Zosyn - dose adjusted by Pharmacy. Consider Augmentin upon discharge. - Waiting for surgery consult regarding abscess/management of drain. Patient will likely need outpatient follow up. - Acute kidney injury - Probable chronic kidney disease stage III - Creatinine jumped from 1.60 on 05/29/2017 to 2.3 and 2.6 during this admission. - We'll keep patient on normal saline 100 cc per hour. - Avoid nephrotoxins - BMP in the AM. - Diabetes mellitus - Hold oral hypoglycemics. - Patient's blood glucose has been well-controlled 95-106. We'll continue sliding scale insulin. BG 160 this AM. Goal 140-180 during hospitalization. - GERD - continue PPI. Full code. Teo Grady DO Jun 02, 2017 8:09 am
[2017-06-02] MEDS: INSULIN ASPART SUPPLEMENTAL SCALE SQ SCH ×4 (08:48→20:56)
[2017-06-02] MEDS: DOCUSATE SODIUM 50 MG/SENNA 8.6 MG TAB PO SCH ×2 (08:49→20:54)
[2017-06-02] MEDS: PANTOPRAZOLE SOD 20 MG DELAYED RELEASE TAB PO SCH (08:49)
[2017-06-02] MEDS: SODIUM CHLORIDE 0.9% FLUSH 10 ML FLUSH IV FLUSH SCH ×2 (08:49→20:55)
[2017-06-02 12:00] VITALS: BP_SYST 110; BP_SYST 50; BP_DIAS 5; BP_DIAS 50; PULSE 71; RESP 18; TEMP 99.6; O2SAT 96
--- NOTE | 2017-06-02 12:35 | PD.CONS ---
cc: Jovon Grullon MD HPI Service General Surgery Consult Requested By Dr. Mcintyre Reason for Consult Gallbladder fossa abscess s/p laparoscopic cholecystectomy in [place] earlier this month Primary Care Physician Non-Staff History of Present Illness This is a 72 year old female with a past medical history of hypertension and diabetes who presented to the ED on Friday night with complaints of persistent fever. The patient was evaluated in the ED on of last week for fever and treated for UTI and given a prescription for Cipro. She did not feel better and came to the ED for be re-evaluated Friday. Of note, the patient had a uncomplicated laparoscopic cholecystectomy on May 19 in [place]. Her follow up appointment was May 22 without complaints or complications. A CT abdomen/pelvis was obtained which shows an abscess at the gallbladder fossa. The patient was started on IV antibiotics. Interventional Radiology has drained the abscess and placed a drain. A General Surgery consultation has been requested. Review of Systems Constitutional: COMPLAINS OF: Fever, Chills, Change in appetite Endocrine: DENIES: Polydipsia, Polyuria, Polyphagia Eyes: DENIES: Diplopia Ears, nose, mouth, throat: DENIES: Hearing loss Respiratory: DENIES: Cough Cardiovascular: DENIES: Palpitations Gastrointestinal: DENIES: Abdominal pain, Nausea, Vomiting Genitourinary: DENIES: Urinary frequency Musculoskeletal: DENIES: Joint pain Integumentary: DENIES: Abnormal pigmentation Hematologic/lymphatic: DENIES: Bruising Immunologic/allergic: DENIES: Eczema Neurologic: DENIES: Abnormal gait, Headache Psychiatric: DENIES: Mood changes, Depression, Hallucinations Past Family Social History Past Medical History Diabetes mellitus Hypertension Past Surgical History Laparoscopic cholecystectomy May 19 in [place] Allergies: Coded Allergies: No Known Allergies (Verified Adverse Reaction, Unknown, 05/31/17) Active Ordered Medications Current Medications Medications (Trade) Dose Ordered Sig/Ariel Route Start Time Stop Time Status Last Admin (NS Flush) 2 ml UNSCH PRN IV FLUSH 05/31/17 21:45 06/02/17 12:20 (NS Flush) 2 ml BID IV FLUSH 06/01/17 09:00 06/02/17 08:49 (Zofran Inj) 4 mg Q6H PRN IVP 05/31/17 21:45 (Narcan Inj) 0.4 mg UNSCH PRN IV PUSH 05/31/17 21:45 (Madeline-Colace) 1 tab BID PO 06/01/17 09:00 06/02/17 08:49 (Milk Of Magnesia Liq) 30 ml Q12H PRN PO 05/31/17 21:45 (Senokot) 17.2 mg Q12H PRN PO 05/31/17 21:45 (Dulcolax Supp) 10 mg DAILY PRN RECTAL 05/31/17 21:45 (Lactulose Liq) 30 ml DAILY PRN PO 05/31/17 21:45 Piperacillin Sod/ Tazobactam Sod 50 ml @ 100 mls/hr Q8H IV 06/01/17 12:00 06/02/17 12:19 (D50w (Vial) Inj) 50 ml UNSCH PRN IV PUSH 06/01/17 11:45 (Glucagon Inj) 1 mg UNSCH PRN OTHER 06/01/17 11:45 (NovoLOG SUPPLEMENTAL SCALE) 1 ACHS SLIDING SCALE SQ 06/01/17 12:00 06/02/17 08:48 (Protonix) 20 mg DAILY PO 06/02/17 09:00 06/02/17 08:49 (Tylenol) 500 mg Q6H PRN PO 06/01/17 17:30 (Honomu 5-325 Mg) 1 tab Q6H PRN PO 06/01/17 17:30 06/01/17 20:37 (Morphine Inj) 2 mg Q3H PRN IV PUSH 06/01/17 17:30 06/01/17 22:53 Family History Non contributory Social History Denies tobacco use Denies ETOH use Denies illicit drug use Physical Exam Vital Signs Vital Signs Date Time Temp Pulse Resp B/P (MAP) Pulse Ox O2 Delivery O2 Flow Rate FiO2 06/02/17 08:00 98.4 68 18 133/61 (85) 96 06/02/17 00:00 98.6 72 20 122/59 (80) 93 06/01/17 20:00 97.9 78 18 121/56 (77) 96 06/01/17 16:00 98.3 73 18 116/58 (77) 96 06/01/17 14:15 98.6 78 17 108/55 (72) 95 06/01/17 13:45 98.0 72 16 109/64 (79) 99 06/01/17 13:15 74 20 116/87 (97) 98 06/01/17 13:00 98.8 73 20 141/59 (86) 95 Physical Exam GENERAL: Very pleasant 72 year old female resting in bed in no acute distress just finishing up lunch. SKIN: Warm and dry. HEAD: Atraumatic. Normocephalic. EYES: Pupils equal and round. No scleral icterus. No injection or drainage. ENT: No nasal bleeding or discharge. Mucous membranes pink and moist. NECK: Trachea midline. CARDIOVASCULAR: Regular rate and rhythm. RESPIRATORY: No accessory muscle use. Clear to auscultation. Breath sounds equal bilaterally. GASTROINTESTINAL: Abdomen soft, lap sites c/d/i; accordion drain placed with mildly vicious drainage MUSCULOSKELETAL: Extremities without clubbing, cyanosis, or edema. No obvious deformities. NEUROLOGICAL: Awake and alert. No obvious cranial nerve deficits. Motor grossly within normal limits. Five out of 5 muscle strength in the arms and legs. Normal speech. PSYCHIATRIC: Appropriate mood and affect; insight and judgment normal. Laboratory Date/Time Source Procedure Growth Status 05/31/17 18:05 Blood Peripheral Aerobic Blood Culture - Preliminary NO GROWTH IN 2 DAYS Resulted 05/31/17 18:05 Blood Peripheral Anaerobic Blood Culture - Preliminary NO GROWTH IN 2 DAYS Resulted 05/31/17 17:40 Urine Clean Catch Urine Culture - Preliminary Gram Negative Fabián Resulted 06/01/17 12:30 Abscess Abdomen Gram Stain - Final Resulted 06/01/17 12:30 Wound Culture - Preliminary Gram Negative Fabián Resulted Result Diagram: 06/01/17 0640 06/01/17 0640 Imaging Last 48 hours Impressions Cholangiopancreatography MRI 06/01/17 0000 Signed Impressions: Service Date/Time: Thursday, June 01, 2017 09:37 - CONCLUSION: Hematoma/debris gallbladder fossa as described on CT scan. Abscess cannot be entirely excluded. Monty Saunders MD FACR Assessment and Plan Assessment and Plan 72 year old female who has laparoscopic cholecystectomy earlier this month at [facility]; now with fevers; gallbladder fossa abscess -s/p IR drainage with accordion drain placement -Regular diet -Continue Zosyn--- would transition likely to Augmentin for DC -Continue to monitor for fevers -Continue drainage -No other surgical intervention needed at this time -Thank you for this consult; We will continue to follow Discussed Condition With Dr. Grullon Mrs. Cross + at bedside Cecy Quinteros Jun 02, 2017 12:35
[2017-06-02 16:00] VITALS: BP 115/55; PULSE 73; RESP 20; TEMP 97.9; O2SAT 92
[2017-06-02 20:00] VITALS: BP 117/57; PULSE 81; RESP 20; TEMP 99.6; O2SAT 94
[2017-06-02] MEDS: ACETAMINOPHEN/HYDROcodone 325 MG/5 MG TAB PO PRN (20:55)
[2017-06-03] VITALS: BP 104/51; PULSE 66; RESP 20; TEMP 98; O2SAT 95
[2017-06-03] MEDS: PIPERACIL-TAZO 2.25 GM PREMIX 50 ML IV SCH (04:34)
[2017-06-03] MEDS: ACETAMINOPHEN/HYDROcodone 325 MG/5 MG TAB PO PRN (04:35)
[2017-06-03 06:26] LABS: AUTOMATED NEUTROPHIL # 6.2 TH/MM3 (1.8-7.7); BASOPHIL % 0.5 % (0.0-2.0); EOSINOPHIL # 0.1 TH/MM3 (0-0.4); EOSINOPHIL % 1.5 % (0.0-4.0); HEMATOCRIT 26.7 % (35.0-46.0); HEMOGLOBIN 8.3 GM/DL (11.6-15.3); MEAN CELL VOLUME 84.4 FL (80.0-100.0); MEAN CORPUSCULAR HEMOGLOBIN 26.3 PG (27.0-34.0); MEAN CORPUSCULAR HGB CONC 31.1 % (32.0-36.0); MEAN PLATELET VOLUME 8.3 FL (7.0-11.0); MONO % 8.3 % (0.0-8.0); MONOCYTE # 0.7 TH/MM3 (0-0.9); NEUT % 77.7 % (16.0-70.0); PLATELET COUNT 435 TH/MM3 (150-450); RED BLOOD COUNT 3.17 MIL/MM3 (4.00-5.30); RED CELL DISTRIBUTION WIDTH 14.3 % (11.6-17.2)
[2017-06-03 06:41] LABS: BICARBONATE 25.6 MEQ/L (21.0-32.0); CALCIUM 8.4 MG/DL (8.5-10.1)
[2017-06-03 06:45] LABS: CREATININE 1.9 MG/DL (0.50-1.00)
[2017-06-03] MEDS ORDERED: NORC5TAB PO (07:30)
[2017-06-03] MEDS ORDERED: AUGM875T3 PO (07:30)
--- NOTE | 2017-06-03 07:31 | HHI.DS ---
Discharge Summary Admission Date Jun 02, 2017 at 07:50 Discharge Date: Jun 03, 2017 Admitting Diagnosis abscess (1) Gallbladder abscess ICD Code: K81.0 - Acute cholecystitis (2) Acute kidney injury ICD Code: N17.9 - Acute kidney failure, unspecified (3) GERD (gastroesophageal reflux disease) ICD Code: K21.9 - Gastro-esophageal reflux disease without esophagitis (4) Diabetes mellitus ICD Code: E11.9 - Type 2 diabetes mellitus without complications (5) CKD (chronic kidney disease) stage 3, GFR 30-59 ml/min ICD Code: N18.3 - Chronic kidney disease, stage 3 (moderate) Procedures abscess drainage by interventional radiology Brief History - From Admission Ms. Cross is a pleasant 72-year-old occasional female with recent history of cholecystectomy on 05/19/2017 in [facility] who presents to the emergency department due to persistent fever. She was evaluated in the emergency department 2 days prior to this admission due fever and she was discharged on ciprofloxacin. However due to persistent fever she returned to the emergency department. She had right upper quadrant pain as well but currently she denies any pain. She denies any dysuria, hematuria. No chest pain, shortness of breath. Denies any changes in bowel or bladder habits. On arrival temperature 100.9F pulse 79 respiration 16 blood pressure 110/71 pulse oximetry 97% on room air. Lab work indicates no leukocytosis, elevation in creatinine 2.60. Lactic acid 0.9. CT abdomen pelvis indicated 8 cm mixed gas and fluid collection in the gallbladder fossa suspicious for abscess. Follow-up MRCP was done which indicated hematoma/debris in the gallbladder fossa. CBC/BMP: 06/03/17 0520 06/03/17 0520 Significant Findings Laboratory Tests Test 05/31/17 17:40 05/31/17 18:04 05/31/17 21:35 06/01/17 06:40 Urine Protein 30 mg/dL (NEG-TRACE) Urine Occult Blood TRACE (NEG) Urine Leukocyte Esterase LARGE (NEG) Urine RBC 4-9 /hpf (0-3) Urine WBC 25-49 /hpf (0-5) Urine Squamous Epithelial Cells 6-8 /hpf (0-5) Urine Bacteria FEW /hpf (NONE) Red Blood Count 3.39 MIL/MM3 (4.00-5.30) 3.18 MIL/MM3 (4.00-5.30) Hemoglobin 9.3 GM/DL (11.6-15.3) 8.9 GM/DL (11.6-15.3) Hematocrit 28.2 % (35.0-46.0) 26.9 % (35.0-46.0) Neutrophils (%) (Auto) 73.5 % (16.0-70.0) 80.8 % (16.0-70.0) Monocytes (%) (Auto) 8.7 % (0.0-8.0) 8.5 % (0.0-8.0) Basophils (%) (Auto) 4.7 % (0.0-2.0) Basophils # (Auto) 0.5 TH/MM3 (0-0.2) Blood Urea Nitrogen 36 MG/DL (7-18) 37 MG/DL (7-18) Creatinine 2.30 MG/DL (0.50-1.00) 2.60 MG/DL (0.50-1.00) Albumin 2.7 GM/DL (3.4-5.0) 2.2 GM/DL (3.4-5.0) Alkaline Phosphatase 123 U/L (45-117) 138 U/L (45-117) Aspartate Amino Transf (AST/SGOT) 38 U/L (15-37) 52 U/L (15-37) Sodium Level 132 MEQ/L (136-145) Chloride Level 94 MEQ/L (98-107) Estimat Glomerular Filtration Rate 21 ML/MIN (>89) 18 ML/MIN (>89) Activated Partial Thromboplast Time 31.1 SEC (24.3-30.1) Lymphocytes (%) (Auto) 8.4 % (9.0-44.0) Lymphocytes # (Auto) 0.7 TH/MM3 (1.0-4.8) Calcium Level 8.0 MG/DL (8.5-10.1) Test 06/01/17 10:50 06/03/17 05:20 Red Blood Count 3.17 MIL/MM3 (4.00-5.30) Hemoglobin 8.3 GM/DL (11.6-15.3) Hematocrit 26.7 % (35.0-46.0) Mean Corpuscular Hemoglobin 26.3 PG (27.0-34.0) Mean Corpuscular Hemoglobin Concent 31.1 % (32.0-36.0) Neutrophils (%) (Auto) 77.7 % (16.0-70.0) Monocytes (%) (Auto) 8.3 % (0.0-8.0) Blood Urea Nitrogen 29 MG/DL (7-18) Creatinine 1.90 MG/DL (0.50-1.00) Random Glucose 134 MG/DL (74-106) Calcium Level 8.4 MG/DL (8.5-10.1) Estimat Glomerular Filtration Rate 26 ML/MIN (>89) Imaging Last Impressions Cholangiopancreatography MRI 06/01/17 0000 Signed Impressions: Service Date/Time: Thursday, June 01, 2017 09:37 - CONCLUSION: Hematoma/debris gallbladder fossa as described on CT scan. Abscess cannot be entirely excluded. Monty Saunders MD FACR Abscess Drainage CT 06/01/17 0000 Signed Impressions: Service Date/Time: Thursday, June 01, 2017 12:11 - CONCLUSION: 1. Uncomplicated CT-guided placement of 10 Portuguese pigtail catheter in cholecystectomy bed with removal of approximate 60 cc of purulent fluid. Large sample submitted for Gram stain and C&S. Foster Hill MD Abdomen/Pelvis CT 05/31/17 0000 Signed Impressions: Service Date/Time: Wednesday, May 31, 2017 20:16 - CONCLUSION: Status post cholecystectomy. 8 cm mixed gas and fluid collection in the gallbladder fossa suspicious for abscess adjacent inflammatory changes also noted. Marco A Fountain MD PE at Discharge GENERAL: Alert, oriented x 3, NAD. SKIN: Warm and dry. HEAD: Normocephalic. EYES: No scleral icterus. No injection or drainage. NECK: Supple, trachea midline. No JVD or lymphadenopathy. CARDIOVASCULAR: Regular rate and rhythm without murmurs, gallops, or rubs. RESPIRATORY: Breath sounds equal bilaterally. No accessory muscle use. GASTROINTESTINAL: Abdomen soft, non-tender, nondistended. GB fossa abscess drain in place. MUSCULOSKELETAL: No cyanosis, or edema. BACK: Nontender without obvious deformity. No CVA tenderness. Pt update on day of discharge Feels better eating well, no n/v/d/c. Pain is controlled. No fever or chills. Feels comfortable to go home. Hospital Course Ms. Cross is a pleasant 72-year-old female with a history of diabetes melitis and recent history of cholecystectomy on 05/19/2017 in [place] who presents to the emergency department due to persistent fever. Radiological workup indicated possible gallbladder fossa abscess. With gallbladder fossa abscess General surgeon on-call who recommended abscess drainage by interventional radiology. IR had drain placed CT abdomen pelvis and MRCP - both imaging studies indicated gallbladder fossa fluid collection possibly abscess Received IV abx Zosyn - dose adjusted by Pharmacy. Augmentin upon discharge. Patient will have outpatient follow up. Acute kidney injury on chronic kidney disease stage III improved on IVF . tolerated PO Patient improved had drain placed by IR, seen by surgical team, to follow up asa OP with surgical team and PC james SANZ. Pt Condition on Discharge: Stable Discharge Disposition: Disch w/ Home Health Serv Discharge Time: > 30 minutes Discharge Instructions DIET: Follow Instructions for: As Tolerated, No Restrictions Activities you can perform: Regular-No Restrictions Follow up Referrals: PCP Follow-up - 2-3 Days SNF/[facility]/HH with [facility] - 1 Week with Jovon Grullon MD New Medications: Amoxicillin-Clavulanate (Augmentin) 875-125 Mg Tab 1 TAB PO BID for Infection, #20 TAB 0 Refills Hydrocodone-Acetaminophen ([place]) 5 Mg-325 Mg Tab 1 TAB PO Q6H PRN for PAIN, #30 TAB 0 Refills Continued Medications: Ezetimibe-Simvastatin (Vytorin) 10-10 Mg Tab 1 TAB PO HS, #30 TAB 0 Refills Glyburide (Glyburide) 5 Mg Tab 5 MG PO DAILY for Blood Sugar Management, #30 TAB 0 Refills Take with meals at the same time each day Olmesartan (Benicar) 20 Mg Tab 20 MG PO DAILY for Blood Pressure Management, #30 TAB 0 Refills Pioglitazone (Actos) 30 Mg Tab 15 MG PO DAILY for Blood Sugar Management, #30 TAB 0 Refills Rabeprazole (Aciphex) 20 Mg Tab 20 MG PO DAILY for Reflux, #30 TAB 0 Refills Sitagliptin (Januvia) 100 Mg Tab 50 MG PO DAILY for Blood Sugar Management, #30 TAB 0 Refills Discontinued Medications: Ciprofloxacin (Cipro) 500 Mg Tab 500 MG PO BID for Infection, #14 TAB 0 Refills Candy Disla MD Jun 03, 2017 07:31
--- NOTE | 2017-06-03 07:34 | HHI.FF ---
Face to Face Verification Diagnosis: (1) Diabetes mellitus (2) Gallbladder abscess (3) Acute kidney injury (4) GERD (gastroesophageal reflux disease) Home Health Nursing Order: Medical education Signs/symptoms of disease process Medication education-adverse effect Nursing assessment with vital signs I have seen patient Karolina Cross on 06/03/17. My clinical findings support the need for the requested home health care services because: Ltd mobility - disease progression Patient has SOB I certify that my clinical findings support that this patient is homebound because: Post-op weakness Candy Disla MD Jun 03, 2017 07:34
[2017-06-03 08:00] VITALS: BP 129/65; PULSE 66; RESP 16; TEMP 97.5; O2SAT 94
[2017-06-03] MEDS: INSULIN ASPART SUPPLEMENTAL SCALE SQ SCH (08:00)
[2017-06-03] MEDS: PANTOPRAZOLE SOD 20 MG DELAYED RELEASE TAB PO SCH (09:59)
[2017-06-03] MEDS: DOCUSATE SODIUM 50 MG/SENNA 8.6 MG TAB PO SCH (09:59)
[2017-06-03] MEDS: SODIUM CHLORIDE 0.9% FLUSH 10 ML FLUSH IV FLUSH SCH (10:00)
--- NOTE | 2017-06-03 10:02 | RADRPT ---
EXAM DATE/TIME: 06/01/2017 12:11 [place] COMPARISON: No previous studies available for comparison. INDICATIONS : History of recent cholecystectomy with apparent abscess in the cholecystectomy bed. SEDATION TIME: 20 minutes MEDICATION(S): 1.) 1 mg midazolam (Versed) IV 2.) 150 mcg fentanyl (Sublimaze) IV DEVICE(S): 1.) 10 Fr Skater 2.) 6 Fr dilator, 8Fr 3.) Rinaldi FLUID: Total volume of 20 cc of davey fluid was removed. Fluid was sent for laboratory ordered studies. MEDICAL HISTORY : Hypercholesterolemia. Hypertension. Diabetes. SURGICAL HISTORY : Cholecystectomy. ENCOUNTER: Initial ACUITY: 1 day PAIN SCORE: 0/10 LOCATION: Right abdomen PROCEDURE: 1.) Conscious sedation with continuous EKG and oximetry monitoring. 2.) EKG and oximetry remained stable throughout the procedure. PROCEDURE : 1. CT guided drainage of cholecystectomy bed abscess 2. Conscious sedation with continuous EKG and oximetry monitoring. The risks, benefits and alternatives to the procedure were explained and verbal and written consent w as obtained. Using automated exposure control and adjustment of the mA and/or kV according to patient size, radiation dose was kept as low as reasonably achievable to obtain optimal diagnostic quality i mages. The site was prepped in sterile fashion. Full sterile technique was used, including cap, ma sk, sterile gloves and gown and a large sterile sheet. Hand hygiene and 2% chlorhexidine and/or beta dine/alcohol prep was utilized per protocol for cutaneous antisepsis. The skin and subcutaneous tiss ues were infiltrated with local anesthetic solution. DICOM format image data is available electronic ally for review and comparison. Using CT guidance the prescribed site was localized. Drainage was performed using the prescribed cat heter The patient tolerated the procedure well and there were no complications. Conscious sedation was per formed with the prescribed dosages and duration as above in the presence of an independent trained ra diology nurse to assist in the monitoring of the patient. EKG and oximetry remained stable throughou t the procedure. The patient tolerated the procedure well and there were no complications. The patient was sent to pos t anesthesia recovery in stable condition. CONCLUSION: 1. Uncomplicated CT-guided placement of 10 Indonesian pigtail catheter in cholecystectomy bed with remova l of approximate 60 cc of purulent fluid. Large sample submitted for Gram stain and C&S. Foster Hill MD on June 03, 2017 at 9:58 Board Certified Radiologist. This report was verified electronically.
== END 2017-06-03 11:53 | disposition home health service (06) | DRG 862 ==
LOC: PHED 17:28 → PHEDA 21:46 → PH3A 22:30 → OBSVTOIN 06-02 07:50
PROVIDERS: ADMIT Hospitalist; ATTEND Hospitalist
PROC: 0W9G30Z Drainage of Peritoneal Cavity with Drainage Device, Percutaneous Approach (ICD-10-PCS; principal; 2017-06-03)
DX: T81.4XXA Infection following a procedure, initial encounter (principal); K65.1 Peritoneal abscess; N17.9 Acute kidney failure, unspecified; N39.0 Urinary tract infection, site not specified; E11.22 Type 2 diabetes mellitus with diabetic chronic kidney disease; E86.0 Dehydration; K21.9 Gastro-esophageal reflux disease without esophagitis; N18.3 Chronic kidney disease, stage 3 (moderate); I12.9 Hypertensive chronic kidney disease with stage 1 through stage 4 chronic kidney disease, or unspecified chronic kidney disease; Z79.84 Long term (current) use of oral hypoglycemic drugs; Z90.49 Acquired absence of other specified parts of digestive tract
CPT/HCPCS: 49423; 74176; 74181; 75989; 76377; 80048; 80053; 81001; 82948; 83605; 85025; 85610; 85730; 87040; 87070; 87077; 87086; 87186; 87205; 96361; 96365; 96367; C1729; C1769; G0378; J0696; J1815; J2250; J2270; J2543; J3010; J7030; Q9963